=== PATIENT | male | born 1950 | race Caucasian/White ===

== ENCOUNTER 2019-12-10 08:42 | Inpatient (IN) | payer OTHER, MEDICARE ==
[~2019-12-10] VITALS: Ht 188 cm; Wt 81.8 kg
[~2019-12-10 08:42] MED LIST: DIAZ-351 PO; OXYC-134 PO
[2019-12-10] MEDS ORDERED: diltiazem 5mg/ml 5ml inj. IV ONE (09:15)
[2019-12-10] MEDS ORDERED: morphine 4 MG/ML inj SYRINge IV ONE (09:15)
[2019-12-10 09:29] LABS: BASOPHILS % (AUTO) 0.3 % (0-1); EOSINOPHILS # (AUTO) 0.1 X10'3 (0-0.9); HEMATOCRIT 52.3 % (42.0-52.0); HEMOGLOBIN 17.7 g/dl (14.0-17.9); LYMPHOCYTES # (AUTO) 0.8 X10'3 (1.1-4.8); MEAN CORPUSCULAR HEMOGLOBIN 31.3 PG (27.0-31.0); MEAN CORPUSCULAR HGB CONC 33.9 g/dL (33.0-36.5); MEAN CORPUSCULAR VOLUME 92.1 FL (78-98); MEAN PLATELET VOLUME 8.8 FL (7.4-10.4); MONOCYTES # (AUTO) 1.1 X10'3 (0-0.9); MONOCYTES % (AUTO) 14.7 % (2-12); NEUTROPHILS # (AUTO) 5.6 X10'3 (1.8-7.7); PLATELET COUNT 185 X10'3 (140-440); RED BLOOD COUNT 5.68 X10'6 (4.70-6.10); RED CELL DISTRIBUTION WIDTH 12.5 % (11.5-14.5); WHITE BLOOD COUNT 7.6 X10'3 (4.5-11.0)
[2019-12-10 09:56] LABS: ALANINE AMINOTRANSFERASE 33 U/L (12-78); ALBUMIN 3.3 G/DL (3.4-5.0); ALBUMIN/GLOBULIN RATIO 0.8 (1.1-1.5); ALKALINE PHOSPHATASE 96 IU/L (46-116); ANION GAP 13 (8-16); ASPARTATE AMINO TRANSFERASE 24 U/L (10-37); BILIRUBIN,TOTAL 0.7 MG/DL (0.1-1.0); BLOOD UREA NITROGEN 36 MG/DL (7-18); BUN/CREATININE RATIO 26.7 (5.4-32.0); C-REACTIVE PROTEIN 5.55 MG/DL (0.0-0.5); CALCIUM 9.9 MG/DL (8.5-10.1); CHLORIDE 99 MMOL/L (99-107); CREATININE 1.35 MG/DL (0.60-1.10); GLUCOSE 141 MG/DL (70-104); LIPASE 60 U/L (73-393); SODIUM 136 MMOL/L (135-145); TOTAL CARBON DIOXIDE 23.9 MMOL/L (24-32); TOTAL PROTEIN 7.3 G/DL (6.4-8.2); eGFR 52 ML/MIN
[2019-12-10] MEDS ORDERED: iohexol 350MG/ML 100ml bottle IV ONE (10:01)
[2019-12-10] MEDS ORDERED: normal saline 1000ML IV soln IVB ONE (10:10)
[2019-12-10] MEDS ORDERED: potassium Cl 10 mEq/100mL bag IV ONE (10:20)
[2019-12-10] MEDS ORDERED: HYDROcodone/acetaminophen 5mg/325mg tablet PO PRN (13:40)
[2019-12-10] MEDS ORDERED: potassium CL 10mEq/100ml bag 100 ML IV PRN ×2 (13:40)
[2019-12-10] MEDS ORDERED: acetaminophen 650mg rectal suppository RC PRN (13:40)
[2019-12-10] MEDS ORDERED: magnesium hydroxide 30ml (MOM) UD suspension PO PRN (13:40)
[2019-12-10] MEDS ORDERED: bisacodyl 10mg suppository rectal RC PRN (13:40)
[2019-12-10] MEDS ORDERED: mag hydrox/Alum hydrox/simeth 30ml oral suspension PO PRN (13:40)
[2019-12-10] MEDS ORDERED: magnesium 2GM in 50ml NS 50 ML IV PRN (13:40)
[2019-12-10] MEDS ORDERED: magnesium Cl slow-release 64mg tablet PO PRN (13:40)
[2019-12-10] MEDS ORDERED: HYDROmorphone inj. 0.5 MG/0.5 ML DISP.SYRIN IV PRN (13:40)
[2019-12-10] MEDS ORDERED: HYDROcodone/acetaminophen 10/325mg tab PO PRN (13:40)
[2019-12-10] MEDS ORDERED: magnesium 4gm in 100ml NS 100 ML IV PRN (13:40)
[2019-12-10] MEDS ORDERED: potassium Cl 20 mEq SR tablet PO PRN (13:40)
[2019-12-10] MEDS ORDERED: acetaminophen 325mg tablet PO PRN ×2 (13:40)
[2019-12-10] MEDS ORDERED: ondansetron/PF 4mg/2ml inj IV PRN (13:40)
[2019-12-10] MEDS: normal saline 1000ml 1,000 ML IV SCH (14:02)
[2019-12-10] MEDS: levoFLOXACIN-Levaquin 500mg/D5 100 ML IV SCH (14:04)
[2019-12-10] MEDS ORDERED: NO HOME MEDS (14:08)
[2019-12-10 14:55] LABS: HEMOGLOBIN A1C 5.6 % (4.5-6.2)
[2019-12-10 15:10] VITALS: BP 114/58
[2019-12-10 15:34] LABS: MAGNESIUM 1.7 MG/DL (1.5-2.4)
[2019-12-10] MEDS: metroNIDAZOLE-Flagyl 500mg/NS 100 ML IV SCH (15:53)
--- NOTE | 2019-12-10 18:53 | NUR ---
Problems reprioritized. Patient report given, questions answered & plan of care reviewed with MALKA Castro.
[2019-12-10 19:00] VITALS: BP 105/48
--- NOTE | 2019-12-10 19:00 | NUR ---
Received report from primary care nurse Lena ACE. Assumed patient care. Patient is awake and alert on room air. In no apparent distress. Call light and items of frequent use within reach. Will continue to monitor for changes.
[2019-12-10] MEDS: K and/or MAG REPLACEMENT MC SCH (19:24)
[2019-12-10] MEDS: famotidine 10mg tablet PO SCH (19:36)
[2019-12-10 23:00] VITALS: BP 110/50
[2019-12-11] MEDS: normal saline 1000ml 1,000 ML IV SCH ×3 (00:14→19:36)
[2019-12-11] MEDS: metroNIDAZOLE-Flagyl 500mg/NS 100 ML IV SCH ×3 (00:14→15:47)
[2019-12-11 02:00] VITALS: BP_SYST 100; BP_SYST 108; BP_DIAS 57; BP_DIAS 66
[2019-12-11 06:00] VITALS: BP 101/65
[2019-12-11 06:02] LABS: BASOPHILS % (AUTO) 0.6 % (0-1); EOSINOPHILS # (AUTO) 0.2 X10'3 (0-0.9); EOSINOPHILS % (AUTO) 4.1 % (0-6); HEMATOCRIT 45.2 % (42.0-52.0); HEMOGLOBIN 15.4 g/dl (14.0-17.9); LYMPHOCYTES # (AUTO) 0.8 X10'3 (1.1-4.8); LYMPHOCYTES % (AUTO) 13.3 % (21-51); MEAN CORPUSCULAR HEMOGLOBIN 31.7 PG (27.0-31.0); MEAN CORPUSCULAR VOLUME 93.1 FL (78-98); MEAN PLATELET VOLUME 8.7 FL (7.4-10.4); MONOCYTES # (AUTO) 0.8 X10'3 (0-0.9); MONOCYTES % (AUTO) 14.1 % (2-12); NEUTROPHILS % (AUTO) 67.9 % (42-75); PLATELET COUNT 166 X10'3 (140-440); RED BLOOD COUNT 4.86 X10'6 (4.70-6.10); RED CELL DISTRIBUTION WIDTH 12.5 % (11.5-14.5); WHITE BLOOD COUNT 5.9 X10'3 (4.5-11.0)
--- NOTE | 2019-12-11 06:09 | NUR ---
received report from юлия nichole
--- NOTE | 2019-12-11 06:19 | NUR ---
Reported off to Talya RN and student RN Ivett. Patient is awake and alert on room air in no apparent distress. Call light and items of frequent use within reach.
[2019-12-11 06:23] LABS: ALANINE AMINOTRANSFERASE 21 U/L (12-78); ALBUMIN 2.6 G/DL (3.4-5.0); ALBUMIN/GLOBULIN RATIO 0.8 (1.1-1.5); ALKALINE PHOSPHATASE 76 IU/L (46-116); ANION GAP 7 (8-16); ASPARTATE AMINO TRANSFERASE 16 U/L (10-37); BILIRUBIN,TOTAL 0.6 MG/DL (0.1-1.0); BLOOD UREA NITROGEN 26 MG/DL (7-18); BUN/CREATININE RATIO 21.3 (5.4-32.0); CALCIUM 8.2 MG/DL (8.5-10.1); CHLORIDE 105 MMOL/L (99-107); CHOL/HDL RATIO 2.6 (0.00-4.99); CHOLESTEROL 64 MG/DL (0-200); CREATININE 1.22 MG/DL (0.60-1.10); GLUCOSE 101 MG/DL (70-104); HDL CHOLESTEROL 25 MG/DL (35-60); LDL CHOLESTEROL 23 MG/DL (50-100); MAGNESIUM 1.6 MG/DL (1.5-2.4); PHOSPHORUS 2.3 MG/DL (2.3-4.5); POTASSIUM 3.2 MMOL/L (3.5-5.1); SODIUM 139 MMOL/L (135-145); TOTAL CARBON DIOXIDE 27.1 MMOL/L (24-32); TOTAL PROTEIN 5.8 G/DL (6.4-8.2); TRIGLYCERIDES 111 MG/DL (20-135); eGFR 59 ML/MIN
[2019-12-11] MEDS: levoFLOXACIN-Levaquin 500mg/D5 100 ML IV SCH (07:01)
[2019-12-11] MEDS: famotidine 10mg tablet PO SCH ×2 (07:06→20:05)
[2019-12-11] MEDS: potassium Cl 20 mEq SR tablet PO PRN ×3 (07:06→15:51)
[2019-12-11] MEDS: K and/or MAG REPLACEMENT MC SCH ×2 (07:10→20:00)
[2019-12-11] MEDS ORDERED: enoxaparin 40mg/0.4ml syringe SUBCUT SCH (08:00)
[2019-12-11] MEDS: metoclopramide 5 mg/ml inj IV PRN ×2 (09:01→15:31)
[2019-12-11] MEDS: HYDROmorphone 1 mg/ml syringe IV PRN ×3 (09:18→20:07)
[2019-12-11 09:36] LABS: C-REACTIVE PROTEIN 6.73 MG/DL (0.0-0.5)
--- NOTE | 2019-12-11 11:47 | NUR ---
DM Consult: Pt A1C less than 7 and not appropriate for DM ed at this time. Addendum: 12/11/19 at [address] Amended: Links added.
[2019-12-11 13:00] VITALS: BP 110/76
[2019-12-11 13:40] LABS: C DIFF ANTIGEN NEGATIVE (NEGATIVE); C DIFF SPECIMEN=DIARRHEA? ACCEPTABLE; C DIFFICILE TOXINS A&B NEGATIVE (Neg)
[2019-12-11 18:00] VITALS: BP 113/74
--- NOTE | 2019-12-11 18:08 | NUR ---
GAVE REPORT TO MALKA MCCLOUD
--- NOTE | 2019-12-11 18:30 | NUR ---
Patient in room PCU 3009. I have received report from Talya ACE and had the opportunity to ask questions and assume patient care.
[2019-12-11] MEDS: lactobacillus rhamnosus 10,000 MMU CELLS/CAPSULE PO SCH ×2 (20:00→20:07)
[2019-12-11] MEDS: apixaban 5mg tablet PO SCH (20:07)
[2019-12-11 22:00] VITALS: BP 114/70
[2019-12-12] MEDS: metroNIDAZOLE-Flagyl 500mg/NS 100 ML IV SCH ×2 (00:36→08:14)
[2019-12-12 02:00] VITALS: BP 119/68
[2019-12-12 05:16] LABS: BASOPHILS % (AUTO) 0.9 % (0-1); EOSINOPHILS # (AUTO) 0.3 X10'3 (0-0.9); EOSINOPHILS % (AUTO) 5.1 % (0-6); HEMATOCRIT 43.3 % (42.0-52.0); HEMOGLOBIN 14.7 g/dl (14.0-17.9); LYMPHOCYTES % (AUTO) 20.4 % (21-51); MEAN CORPUSCULAR HEMOGLOBIN 31.6 PG (27.0-31.0); MEAN CORPUSCULAR VOLUME 93.1 FL (78-98); MEAN PLATELET VOLUME 8.8 FL (7.4-10.4); MONOCYTES # (AUTO) 0.8 X10'3 (0-0.9); NEUTROPHILS % (AUTO) 58.6 % (42-75); PLATELET COUNT 160 X10'3 (140-440); RED BLOOD COUNT 4.66 X10'6 (4.70-6.10); RED CELL DISTRIBUTION WIDTH 12.5 % (11.5-14.5); WHITE BLOOD COUNT 5.1 X10'3 (4.5-11.0)
[2019-12-12 05:25] LABS: ALANINE AMINOTRANSFERASE 13 U/L (12-78); ALBUMIN 2.5 G/DL (3.4-5.0); ALBUMIN/GLOBULIN RATIO 0.8 (1.1-1.5); ALKALINE PHOSPHATASE 70 IU/L (46-116); ANION GAP 7 (8-16); ASPARTATE AMINO TRANSFERASE 16 U/L (10-37); BILIRUBIN,TOTAL 0.4 MG/DL (0.1-1.0); BLOOD UREA NITROGEN 14 MG/DL (7-18); BUN/CREATININE RATIO 13.2 (5.4-32.0); CALCIUM 7.4 MG/DL (8.5-10.1); CHLORIDE 107 MMOL/L (99-107); CREATININE 1.06 MG/DL (0.60-1.10); GLUCOSE 91 MG/DL (70-104); MAGNESIUM 1.5 MG/DL (1.5-2.4); PHOSPHORUS 1.6 MG/DL (2.3-4.5); POTASSIUM 3.3 MMOL/L (3.5-5.1); SODIUM 139 MMOL/L (135-145); TOTAL CARBON DIOXIDE 25.1 MMOL/L (24-32); TOTAL PROTEIN 5.5 G/DL (6.4-8.2); eGFR 69 ML/MIN
[2019-12-12 06:00] VITALS: BP 109/70
--- NOTE | 2019-12-12 06:13 | NUR ---
Problems reprioritized. Patient report given, questions answered & plan of care reviewed with Liza ACE.
--- NOTE | 2019-12-12 06:15 | NUR ---
Patient in room U 3009. I have received report from MALKA Rockwell and had the opportunity to ask questions and assume patient care. Patient sleeping comfortably.
[2019-12-12 07:05] LABS: TOTAL CELLS COUNTED 100
[2019-12-12 07:06] LABS: PLATELET ESTIMATE NORMAL
[2019-12-12] MEDS: lactobacillus rhamnosus 10,000 MMU CELLS/CAPSULE PO SCH ×2 (08:00→08:11)
[2019-12-12] MEDS: potassium Cl 20 mEq SR tablet PO PRN (08:12)
[2019-12-12] MEDS: apixaban 5mg tablet PO SCH (08:12)
[2019-12-12] MEDS: normal saline 1000ml 1,000 ML IV SCH (08:14)
[2019-12-12] MEDS: levoFLOXACIN-Levaquin 500mg/D5 100 ML IV SCH (08:14)
[2019-12-12] MEDS: famotidine 10mg tablet PO SCH (08:17)
[2019-12-12] MEDS: K and/or MAG REPLACEMENT MC SCH (08:28)
[2019-12-12] MEDS ORDERED: APIX5TAB3 PO (10:36)
[2019-12-12] MEDS ORDERED: METR-159 PO (10:36)
[2019-12-12] MEDS ORDERED: LEVO500T2 PO (10:36)
--- NOTE | 2019-12-12 11:15 | NUR ---
Pt was agitated, wanted to be discharged now, was using profanity words. Dr Chavis tried to talk to pt, but pt refused care. Pt stable for discharge per MD orders. All instructions were given, all questions were answered. I explained to patient to follow up with primary care provider in one week, [facility] PIV was discontinued, cannula intact. Tele monitor discontinued, telesales professional notified. I offered to call a cab for patient, he refused and said he would call when he got downstairs. I wheeled patient to [facility], I offered to call a cab one last time, he told me he would contact his boy for a ride and he didn't want anything else from me. Pt was sitting on bench outside when I walked away. 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
[2019-12-12] MEDS ORDERED: metroNIDAZOLE 500mg tablet PO SCH (16:00)
[2019-12-12] MEDS ORDERED: AZIT-63 PO (16:18)
[2019-12-13] MEDS ORDERED: levoFLOXACIN 500mg tablet PO SCH (11:00)
== END 2019-12-12 11:30 | disposition home or self-care (01) | DRG 372 ==
LOC: ER 08:43 → ED HOLD 13:36 → PCU 3S 14:45
PROVIDERS: ADMIT Family Medicine; ATTEND Family Medicine
PROC: B3201ZZ Computerized Tomography (CT Scan) of Thoracic Aorta using Low Osmolar Contrast (ICD-10-PCS; principal; 2019-12-10)
PROC: B4201ZZ Computerized Tomography (CT Scan) of Abdominal Aorta using Low Osmolar Contrast (ICD-10-PCS; 2019-12-10)
DX: A04.5 Campylobacter enteritis (principal); N17.9 Acute kidney failure, unspecified; E87.6 Hypokalemia; F12.90 Cannabis use, unspecified, uncomplicated; G89.29 Other chronic pain; M19.90 Unspecified osteoarthritis, unspecified site; M54.9 Dorsalgia, unspecified; R45.1 Restlessness and agitation; I48.91 Unspecified atrial fibrillation; J44.9 Chronic obstructive pulmonary disease, unspecified; Z87.891 Personal history of nicotine dependence; Z88.8 Allergy status to other drugs, medicaments and biological substances
CPT/HCPCS: 36415; 71045; 71275; 74174; 80053; 80061; 83036; 83605; 83690; 83735; 84100; 84443; 84484; 85025; 85610; 86140; 87045; 87046; 87077; 87081; 87324; 87328; 87329; 87336; 87449; 89055; 93005; 93306; 96374; 96375; 99285; G0378; J1170; J1650; J1956; J2270; J2405; J2765; J3480; J3490; J7030; Q9967

== ENCOUNTER 2022-11-27 06:58 | Day surgery (SDC) | payer OTHER, MEDICARE ==
[2022-11-22 14:55] LABS: BASOPHILS # (AUTO) 0.1 X10'3 (0-0.2); BASOPHILS % (AUTO) 1.1 % (0-1); EOSINOPHILS # (AUTO) 0.3 X10'3 (0-0.9); EOSINOPHILS % (AUTO) 3.7 % (0-6); LYMPHOCYTES # (AUTO) 1.7 X10'3 (1.1-4.8); LYMPHOCYTES % (AUTO) 24.4 % (21-51); MEAN CORPUSCULAR HGB CONC 33.7 g/dL (33.0-36.5); MEAN CORPUSCULAR VOLUME 94.9 FL (78-98); MEAN PLATELET VOLUME 8.3 FL (7.4-10.4); MONOCYTES # (AUTO) 0.6 X10'3 (0-0.9); MONOCYTES % (AUTO) 8.4 % (2-12); NEUTROPHILS # (AUTO) 4.4 X10'3 (1.8-7.7); NEUTROPHILS % (AUTO) 62.4 % (42-75); PRE OP HEMATOCRIT 48.3 % (42.0-52.0); PRE OP HEMOGLOBIN 16.3 g/dL (14.0-17.9); PRE OP PLATELET COUNT 173 X10'3 (140-440); RED BLOOD COUNT 5.09 X10'6 (4.70-6.10); RED CELL DISTRIBUTION WIDTH 13.2 % (11.5-14.5)
[2022-11-22 15:01] LABS: ALBUMIN 3.7 G/DL (3.4-5.0); ALBUMIN/GLOBULIN RATIO 1.1 (1.1-1.5); ALKALINE PHOSPHATASE 100 IU/L (46-116); BLOOD UREA NITROGEN 10 MG/DL (7-18); BUN/CREATININE RATIO 11.1 (10.0-20.0); CALCIUM 8.7 MG/DL (8.5-10.1); CHLORIDE 108 MMOL/L (99-107); PRE OP ALT 13 U/L (30-65); PRE OP ANION GAP 5 (8-16); PRE OP AST 15 U/L (10-37); PRE OP BILIRUB, TOTAL 0.4 MG/DL (0.0-1.0); PRE OP GLUCOSE 83 MG/DL (70-104); PRE OP POTASSIUM 3.9 MMOL/L (3.4-5.1); PRE OP SODIUM 145 MMOL/L (135-145); TOTAL CARBON DIOXIDE 32.1 MMOL/L (24-32); TOTAL PROTEIN 7.2 G/DL (6.4-8.2); eGFR 82 ML/MIN
[2022-11-27] VITALS (10 sets, daily range): BP systolic 111–130; BP diastolic 70–89
[~2022-11-27] VITALS: Ht 182.9 cm; Wt 75.3 kg
[~2022-11-27 06:58] MED LIST changes: +APIX5TAB3 PO; +BUPIVAcaine/PF 2.5mg/ml (0.25%) 10ml vial ONE; +CALCIUM; -DIAZ-351 PO; -OXYC-134 PO; +VIT D3; +VITAMIN B12; +cefazolin 2gm/D5W 100mL 100 ML IV ONE; +famotidine 20mg tablet PO ONE; +ringers solution, lacted 1,000 ML IV SCH
[2022-11-27] MEDS ORDERED: albuterol 2.5 MG/3 ML nebule NEB STA (08:58)
[2022-11-27] MEDS ORDERED: LIDOcaine 0.5% (5mg/ml) 50ml vial ONE (10:10)
[2022-11-27] MEDS ORDERED: MIDAZolam 1 MG/ML 5ML VIAL ONE (11:50)
[2022-11-27] MEDS ORDERED: fentaNYL/PF 50MCG/1 ML 2ML syringe ONE (11:50)
[2022-11-27] MEDS ORDERED: BUPIVAcaine/PF 2.5mg/ml (0.25%) 10ml vial IJ ONE (12:21)
[2022-11-27] MEDS ORDERED: ketorolac trometh. 30mg/ml inj. ONE (12:31)
--- NOTE | 2022-11-27 12:43 | NUR ---
Received from OR via [facility] BED 6, accompanied by Anesthesiologist DR SANDHU and report given by Anesthesiolgist. PT PRESENTS WITH PIV 20G LEFT HAND, RIGHT HAND DRESSING CDI, VSS. Addendum: 11/27/22 at 1312 by Davida Will RN, RN Amended: Links added.
--- NOTE | 2022-11-27 13:53 | NUR ---
: ALL DISCHARGE CRITERIA HAS BEEN MET. VSS, PAIN AT A TOLERABLE LEVEL, VOIDING AND ABLE TO SAFELY AMBULATE AND TRANSFER SELF. IV TAKEN OUT WITHOUT ANY COMPLICATIONS. ALL DISCHARGE INSTRUCTIONS COVERED WITH PATIENT AND ALL QUESTIONS ANSWERED. PATIENT TAKEN OUT VIA WHEELCHAIR TO PERSONAL VEHICLE WHERE FAMILY/FRIEND DROVE PATIENT HOME. Addendum: 11/27/22 at 1409 by Davida Will RN, RN Amended: Links added.
== END 2022-11-27 13:53 | disposition home or self-care (01) ==
LOC: PAS 06:58
PROVIDERS: ATTEND Orthopaedic Surgery Hand Surgery
DX: S63.212A Subluxation of metacarpophalangeal joint of right middle finger, initial encounter (principal); J44.9 Chronic obstructive pulmonary disease, unspecified; I48.91 Unspecified atrial fibrillation; E11.9 Type 2 diabetes mellitus without complications; F43.10 Post-traumatic stress disorder, unspecified; M19.90 Unspecified osteoarthritis, unspecified site; F10.91 Alcohol use, unspecified, in remission; F17.210 Nicotine dependence, cigarettes, uncomplicated; Z98.890 Other specified postprocedural states; Z79.899 Other long term (current) drug therapy; X58.XXXA Exposure to other specified factors, initial encounter; Y93.89 Activity, other specified; Y92.89 Other specified places as the place of occurrence of the external cause; Y99.8 Other external cause status
CPT/HCPCS: 26437; 36415; 80053; 82948; 85025; 93005; 94640; 94760; J0690; J1885; J2250; J3010; J3490; J7030; J7120; Z7506; Z7512; A4215; A4618; A7000

== ENCOUNTER 2023-04-30 08:03 | Day surgery (SDC) | payer OTHER, MEDICARE ==
[~2023-04-30] VITALS: Ht 188 cm; Wt 80.2 kg
[2023-04-30] VITALS (26 sets, daily range): BP systolic 105–163; BP diastolic 68–138; PULSE 51–81; RESP 15–20; TEMP 97.7; O2SAT 88–93
[~2023-04-30 08:03] MED LIST changes: -BUPIVAcaine/PF 2.5mg/ml (0.25%) 10ml vial ONE; -CALCIUM; +CALCIUM PO; -VIT D3; +VIT D3 PO; -VITAMIN B12; +VITAMIN B12 PO; -cefazolin 2gm/D5W 100mL 100 ML IV ONE; -famotidine 20mg tablet PO ONE; -ringers solution, lacted 1,000 ML IV SCH
[2023-04-30] MEDS ORDERED: normal saline 1000ml 1,000 ML IV PRN (08:25)
[2023-04-30 09:05] LABS: BASOPHILS # (AUTO) 0.1 X10'3 (0-0.2); BASOPHILS % (AUTO) 1.1 % (0-1); EOSINOPHILS # (AUTO) 0.2 X10'3 (0-0.9); EOSINOPHILS % (AUTO) 3.7 % (0-6); HEMATOCRIT 46.1 % (42.0-52.0); HEMOGLOBIN 15.6 g/dl (14.0-17.9); LYMPHOCYTES # (AUTO) 1.4 X10'3 (1.1-4.8); LYMPHOCYTES % (AUTO) 21.7 % (21-51); MEAN CORPUSCULAR HEMOGLOBIN 32.4 PG (27.0-31.0); MEAN CORPUSCULAR HGB CONC 33.9 g/dL (33.0-36.5); MEAN CORPUSCULAR VOLUME 95.4 FL (78-98); MEAN PLATELET VOLUME 8.5 FL (7.4-10.4); MONOCYTES # (AUTO) 0.6 X10'3 (0-0.9); MONOCYTES % (AUTO) 8.8 % (2-12); NEUTROPHILS # (AUTO) 4.3 X10'3 (1.8-7.7); NEUTROPHILS % (AUTO) 64.7 % (42-75); PLATELET COUNT 143 X10'3 (140-440); RED BLOOD COUNT 4.83 X10'6 (4.70-6.10); RED CELL DISTRIBUTION WIDTH 13.4 % (11.5-14.5); WHITE BLOOD COUNT 6.6 X10'3 (4.5-11.0)
[2023-04-30 09:13] LABS: PROTHROMBIN TIME 10.9 SECONDS (9.0-12.0)
[2023-04-30] MEDS ORDERED: fentaNYL/PF 50MCG/1 ML 2ML syringe ONE ×2 (10:14→11:22)
[2023-04-30] MEDS ORDERED: midazolam 1 mg/ML 2ml injection ONE (10:14)
[2023-04-30] MEDS ORDERED: APIX5TAB3 PO (10:20)
[2023-04-30] MEDS ORDERED: gelatin sponge, absorbable (Gelfoam 12-7MM) sponge TP ONE (10:56)
[2023-04-30] MEDS ORDERED: HYDROcodone/acetaminophen 5mg/325mg tablet PO PRN ×2 (11:55)
[2023-04-30] MEDS ORDERED: FLU VACC QS2023-24(6MOS UP)/PF 60 MCG/0.5 ML SYRINGE IM ONE (12:00)
== END 2023-04-30 15:45 | disposition home or self-care (01) ==
LOC: SSTAY O 08:03
PROVIDERS: ATTEND Radiology Vascular & Interventional Radiology
DX: R91.8 Other nonspecific abnormal finding of lung field (principal); C34.32 Malignant neoplasm of lower lobe, left bronchus or lung; G89.29 Other chronic pain; F17.210 Nicotine dependence, cigarettes, uncomplicated; Z86.19 Personal history of other infectious and parasitic diseases; Z23 Encounter for immunization; Z98.890 Other specified postprocedural states; Z88.8 Allergy status to other drugs, medicaments and biological substances; Z79.01 Long term (current) use of anticoagulants; Z79.899 Other long term (current) drug therapy
CPT/HCPCS: 32408; 36415; 71045; 82948; 85025; 85610; 90686; 99152; 99153; C1729; C1769; G0008; J2250; J3010; J7030; A4421; A4615; A6258

== ENCOUNTER 2023-08-24 08:04 | Emergency (ER) | payer OTHER, MEDICARE ==
[~2023-08-24] VITALS: Ht 188 cm; Wt 77.3 kg
[2023-08-24] MEDS ORDERED: acetaminophen 325mg tablet PO ONE (11:30)
[2023-08-24 11:35] VITALS: TEMP 97.7
[2023-08-24] MEDS ORDERED: LIDOcaine 1% W/epiNEPHrine 1:100,000 20ml vial SQ ONE (14:40)
[2023-08-24] MEDS ORDERED: LIDOCAINE 1%/EPI 1:100,000 inj. 10 ML multi-dose vial SQ ONE (14:40)
[2023-08-24 15:15] VITALS: BP 114/78; PULSE 56; RESP 16; O2SAT 95
[2023-08-24 16:51] LABS: APPEARANCE,SYNOVIAL FLUID CLOUDY; COLOR,SYNOVIAL FLUID YELLOW
[2023-08-24 16:52] LABS: SYN RBC 19000 /CU MM (0); SYN WBC 39000 /CU MM (0-200); SYNOVIAL FLUID CRYSTALS QT NO CRYSTALS SEEN
== END 2023-08-24 15:58 | disposition home or self-care (01) ==
LOC: ER 08:04
DX: M71.21 Synovial cyst of popliteal space [Baker], right knee (principal); M19.90 Unspecified osteoarthritis, unspecified site; G89.29 Other chronic pain; M54.9 Dorsalgia, unspecified; F12.10 Cannabis abuse, uncomplicated; W19.XXXA Unspecified fall, initial encounter; Y93.89 Activity, other specified; Y92.89 Other specified places as the place of occurrence of the external cause; Y99.8 Other external cause status
CPT/HCPCS: 10160; 70450; 72125; 73564; 87070; 89051; 89060; 93926; 93971; 99285; J3490